=== PATIENT | female | born 1970 | race Caucasian/White ===

== ENCOUNTER → 2017-07-12 | Outpatient (CLI) | payer OTHER | LOC: BMCIMAGING 15:34 | PROVIDERS: ATTEND Family Medicine | DX: M41.84 Other forms of scoliosis, thoracic region (principal); M41.82 Other forms of scoliosis, cervical region; M47.814 Spondylosis without myelopathy or radiculopathy, thoracic region; M50.322 Other cervical disc degeneration at C5-C6 level ==